=== PATIENT | male | born 1990 | race Two or more races ===

== ENCOUNTER 2025-08-06 19:09 | Emergency (ER) | payer SELFPAY ==
[2025-08-06 19:25] VITALS: PULSE 103; RESP 14; O2SAT 99; BMI 25.8
--- NOTE | 2025-08-06 19:34 | EDNOTE_ITS ---
ED Alcohol RME/HPI General Chief Complaint: General Adult/Misc Complain Stated Complaint: ETOH Time Seen by Provider: 08/06/25 19:41 Arrival date/time: 08/06/25 19:09 RME / HPI RME / HPI narrative: DR. BENAVIDEZ MAIN ED EVALUATION: Patient presents for public intoxication, found down with no obvious trauma and was transported by paramedics to ED in a mildly agitated state. Upon arrival, patient become more aggressive when approached, hiostory is thereby truncated and obtained primarily by paramedics. complaint: alcohol intoxication Related Data Allergies Allergy/AdvReac Type Severity Reaction Status Date / Time No Known Allergies Allergy Verified 08/06/25 19:48 Review of Systems Review of Systems ROS Unobtainable: unobtainable due to mental status ED Exam Narrative Physical exam: GEN. APPEARANCE: The patient is alert awake oriented X-1 in no distress, lying down comfortably, does not look ill/toxic. Patient has good eye contact. Patient appears inebriated and easily agitated, can follow simple commands. VITALS: All vitals were reviewed and the pulse ox is 99% on room air which is normal according to my interpretation. HEENT: Normocephalic, atraumatic. Pupils are equal and reactive. Oral mucosa is moist. Patent Nares NECK: Supple, nontender, no thyromegaly, no meningismus, no JVD, no step offs CHEST: Symmetrical, atraumatic, and with equal expansion , Nontender on palpation no deformity and no crepitus. CARDIOVASCULAR: Tachycardic, no murmur or gallop rub or extra beats. LUNGS: Clear to auscultation bilaterally with symmetrical chest rise. No laboring tachypnea or wheezing. No intercostal subcostal retraction. No rales and no rhonchi. ABDOMEN: Soft, flat, nontender to palpation, no guarding or rebound tenderness. There are no abnormal masses palpated. Active and normal bowel sounds. EXTREMITIES: Nontender. No edema. No cyanosis. Patient is able to move all 4 extremities well, with full ROM and good CSM. SKIN: Warm and dry, no jaundice or rashes noted. MUSCULOSKELETAL: No lubar or midline bony tenderness. There is no CVA tenderness. No paraspinal muscle spasm or tenderness. NEURO: Patient is CEE x 4, Cranial nerves II through XII grossly intact. There is no focal neurologic deficits noted. GCS is 15, PNS and SALES [employer]ELOP[employer] CONS[employer] appear grossly intact. PSYCHIATRIC: Unassessable. Oriented x-1. Course Quality Measures none Orders Category Date Time Status Alcohol, Blood Medical Stat Lab 08/06/25 20:45 Completed CBC [CBC] Stat Lab 08/06/25 19:49 Completed CMP [Comprehensive Metabolic Panel] Stat Lab 08/06/25 20:45 Completed Urinalysis, C/S if Indicated Stat Lab 08/06/25 20:09 Completed Folic Acid Inj Med 08/06/25 19:41 Discontinued 1 mg IVP X1 ONE Haloperidol Lactate [Haldol Inj] Med 08/06/25 19:41 Discontinued 10 mg IM X1 ONE Magnesium Sulfate 2 GM Ivpb [Magnesium Sulfate Ivpb] Med 08/06/25 19:41 Discontinued 2 gm in 50 ml IV X1 Sodium Chloride 0.9% 1000 ml [Ns] 1,000 ml Med 08/06/25 19:41 Discontinued IV 999 mls/hr Thiamine Inj [Vitamin B-1 Inj] Med 08/06/25 19:41 Discontinued 100 mg IVP X1 ONE Vital Signs Vital signs: Vital Signs Pulse Rate 94 08/06/25 19:45 Respiratory Rate 14 08/06/25 19:45 Blood Pressure 122/83 08/06/25 19:45 Pulse Oximetry (%) 99 08/06/25 19:45 Oxygen Delivery Method Room Air 08/06/25 19:45 Discharge Plan Plan Patient Disposition: HOME (Self Care) Prescriptions/Referrals Referrals: Sina Martin MD [Primary Care Provider, Family Practice] - In 1 week Problem List Clinical Impression: Alcohol intoxication Patient/Caregiver Discharge Instructions Education Materials: ED Alcohol Intoxication Additional Instructions: Recommendations include avoidance of excessive alcohol consumption. Maintain adequate rest fluid hydration and follow-up with primary care doctor as needed. Return if worsening Print Language: [place] Stand Alone Forms: Leigh Award Info., Patient Portal Info Letter Alcohol MDM Narrative MDM Narrative: Scribe Attestation: Althea Bowman, am scribing for and in the presence of Dr. Benavidez. Provider Notation: Although this document has been carefully reviewed, there may still be some phonetic and other typographical errors. These errors are purely grammatical due to imperfections in the software program and should not be construed in any way to compromise the substance of the patient's medical care during this visit. Patient presents for public intoxication, found down with no obvious trauma and was transported by paramedics to ED in a mildly agitated state. Upon arrival, patient become more aggressive when approached, hiostory is thereby truncated and obtained primarily by paramedics. Please see PE findings. Laboratory markers including CBC unremarkable excluding thrombocytopenia with platelet count of 90. No left shift or bandemia. UA without evidence of infection. Serum chemistries and alcohol level are pending. Patient's mother has arrived to ED and will likely release in mother's custody. Clinical impression is acute ethanol intoxication, disposition to home. Patient data External records reviewed:: [facility] previous records (No prior ED records available for review) and EMS form Clinical information provided by:: patient and EMS Social determinants that could affect healthcare access:: alcohol use Patient has the following chronic illnesses:: None reported How is presenting disease/condition affected by chronic disease/condition?: no chronic disease Evaluation data The following diagnostics were reviewed and interpreted by me:: lab results Lab and/or radiology exams considered but not ordered:: None Interpretation Summary: See MDM above Medications / Prescriptions Medications or Prescriptions considered but not ordered:: None Medication administrations:: Medication Administration History Discontinued Medications Folic Acid (Folic Acid Inj 1 Mg/0.2 Ml) 1 mg IVP X1 ONE Stop: 08/06/25 19:42 Last Admin: 08/06/25 20:01 Dose: 1 mg Documented By: DT Haloperidol Lactate (Haloperidol Lact Inj 5 Mg/Ml Vial) 10 mg IM X1 ONE Stop: 08/06/25 19:42 Last Admin: 08/06/25 20:46 Dose: Not Given Documented By: DT Non-Admin Reason: Cancelled by Provider Sodium Chloride (Ns) 1,000 mls @ 999 mls/hr IV .Q1H1M ONE Stop: 08/06/25 20:41 Last Infusion: 08/06/25 21:19 Dose: Infused Documented By: Admin: 08/06/25 20:00 Dose: 999 mls/hr Documented By: DT Magnesium Sulfate (Magnesium Sulfate Ivpb) 2 gm in 50 mls @ 25 mls/hr IV X1 ONE Stop: 08/06/25 21:40 Last Infusion: 08/06/25 21:19 Dose: Infused Documented By: Admin: 08/06/25 20:02 Dose: 25 mls/hr Documented By: DT Thiamine HCl (Thiamine Inj 100 Mg/Ml Vial 2 Ml) 100 mg IVP X1 ONE Stop: 08/06/25 19:42 Last Admin: 08/06/25 20:00 Dose: 100 mg Documented By: DT See above if any Consultations Consultation(s) initiated? (list below): No Diagnosis Differential diagnosis alcohol: alcohol withdrawal delirium, hypomagnesemia, alcohol intoxication, alcohol ketoacidosis, alcohol withdrawal syndrome and alcohol withdrawal seizure Most likely diagnosis given after review of the tests above:: Ethanol intoxication Admission Indicated Admission indicated?: not indicated Explain why admission is indicated or not indicated:: Patient does not meet admission criteria Admission Request Was there a request for admission?: No Disposition Plan Disposition Plan: Discharge Discharge Attestation Discharge Attestation: The patient and all family members were given an opportunity to ask questions and understood the discharge instructions. Discharge instructions specifically effects, indications for sooner follow up or return to the emergency department, and the expected course of current diagnosis. Patient condition: Stable
[2025-08-06 19:45] VITALS: BP 122/83; PULSE 94; RESP 14; O2SAT 99
[2025-08-06] MEDS: THIAMINE INJ 100 MG/ML VIAL 2 ML IVP (20:00)
[2025-08-06] MEDS: SODIUM CHLORIDE 0.9% 1000 ML 1,000 ML 999 ML IV (20:00)
[2025-08-06] MEDS: FOLIC ACID INJ 1 MG/0.2 ML IVP (20:01)
[2025-08-06] MEDS: Magnesium Sulfate 2 GM Ivpb 2 GM/50 ML BAG IV (20:02)
[2025-08-06 20:13] LABS: Basophils # (Auto) 0.1 Thou/mm3 (0.0-0.2); Basophils % (Auto) 1 % (0-2.5); Eosinophils # (Auto) 0.2 Thou/mm3 (0.0-0.5); Eosinophils % (Auto) 2 % (0-10); Hematocrit 43.2 % (41.0-53.0); Hemoglobin 15.3 g/dL (13.5-16.0); Immature Granulocytes Auto 0.03 Thou/mm3 (0.00-0.00); Lymphocytes # (Auto) 2.9 Thou/mm3 (1.0-4.8); Lymphocytes % (Auto) 43 % (10-50); Mean Corpuscular HGB Conc 35.4 g/dl (31.0-37.0); Mean Corpuscular Hemoglobin 33.2 pg (25.0-35.0); Mean Corpuscular Volume 94 fL (80-100); Monocytes # (Auto) 0.5 Thou/mm3 (0.0-0.8); Monocytes % (Auto) 8 % (0-12); Neutrophils # (Auto) 3.1 Thou/mm3 (1.8-7.7); Neutrophils % (Auto) 46 % (37-80); Nucleated Red Blood Cell # 0.00 Thou/mm3 (0.00-0.00); Nucleated Red Blood Cell % 0 /100 WBC (0); Platelet Count 90 Thou/mm3 (140-440); RDW Standard Deviation 42.3 fL (35.1-43.9); Red Blood Count 4.61 Miln/mm3 (4.50-5.90); White Blood Count 6.7 Thou/mm3 (3.8-10.6)
[2025-08-06 20:15] LABS: Collection Type, Urine Clean Catch; Squamous Epithelial Cell,Urine 0 /hpf (0-5)
[2025-08-06 20:30] LABS: Bilirubin,Urine Negative (Negative); Blood,Urine Negative (Negative); Clarity,Urine Clear (Clear/Hazy); Color,Urine Colorless (Lt Yel-Yel); Culture Indicated,Urine Not Indicated; Glucose, Urine Negative (Negative); Ketones,Urine Negative (Negative); Leukocyte Esterase,Urine Negative (Negative); Nitrite,Urine Negative (Negative); PH,Urine 6.0 (5.0-7.0); Protein,Urine Negative (Neg - Trace); RBC,Urine 2 /hpf (0-3); Specific Gravity,Urine 1.004 (1.001-1.035); Urobilinogen,Urine Negative mg/dL (0.0-1.0); WBC,Urine 2 /hpf (0-5)
--- NOTE | 2025-08-06 20:46 | PC.NURSE ---
PATIENT SELF REMOVED IV AND WILDLIFE VETERINARIAN. PATIENT STATES IM GOOD IM READY TO GO HOME . PATIENTS MOTHER AT BEDSIDE. PROVIDER D INFORMED OF PATIENT WANTING TO LEAVE.
[2025-08-06 21:10] LABS: Alanine Aminotransferase 163 U/L (10-49); Albumin, Serum 4.8 gm/dL (3.5-5.0); Albumin/Globulin Ratio 1.2 (1.2-2.2); Alkaline Phosphatase 145 U/L (46-116); Anion Gap 11 (7-16); Aspartate Amino Transferase 354 U/L (0-34); BUN/Creatinine Ratio 7 Ratio (12-20); Bilirubin,Total 0.6 mg/dL (0.3-1.2); Blood Urea Nitrogen < 5 mg/dL (9-23); Calcium 9.2 mg/dL (8.3-10.6); Calcium (Corrected) 9.2 mg/dL (8.5-10.1); Carbon Dioxide 23.2 mMol/L (20.0-31.0); Chloride 109 mMol/L (98-107); Creatinine (Component) 0.7 mg/dL (0.6-1.3); Estimated Creatinine Clearance 143.9 mL/min (>60); Globulin 4.0 gm/dL (2.3-3.5); Glucose 93 mg/dL (74-106); Osmolality,Calculated 282 (275-295); Potassium 3.6 mMol/L (3.4-5.1); Sodium 143 mMol/L (136-145); Total Protein 8.8 gm/dL (5.7-8.2); eGFR > 60 See Note
[2025-08-06 21:15] LABS: Alcohol, Blood Medical 463.9 mg/dL (0-10.0)
[2025-08-06 21:22] VITALS: RESP 18
== END 2025-08-06 21:23 | disposition home or self-care (01) ==
PROVIDERS: Emergency Provider Emergency Medicine; PCP Family Medicine
DX: F10.929 Alcohol use, unspecified with intoxication, unspecified (principal); Y90.8 Blood alcohol level of 240 mg/100 ml or more
CPT/HCPCS: 36415; 80053; 80320; 81001; 85025; 96365; 96375; 99283; J3411; J3475; J3490; J7030; G0480